=== PATIENT | female | born 1995 | race African-American/Black ===

== ENCOUNTER 2018-04-27 21:22 | Emergency (ER) | payer OTHER ==
[2018-04-27] MEDS ORDERED: CLINDAMYCIN HCL 150 MG CAP ONE (22:26)
[2018-04-27] MEDS ORDERED: DEXAMETHASONE 10 MG/ML VIAL ONE (22:26)
--- NOTE | 2018-04-27 22:28 | ER ---
Nurse's Notes [facility] Name: Emeterio Dunn Age: 23 yrs Sex: Female : 1995 Arrival Date: 04/27/2018 Time: 21:22 Bed 16 Private MD: Diagnosis: Acute tonsillitis Presentation: 04/27 21:55 Presenting complaint: Patient states: that she is having pain with swallowing and fc cough. Started 2 weeks ago. Denies any ear pain or fever. She is concerned that she may have strep throat. Transition of care: patient was not received from another setting of care. Onset of symptoms was April 13, 2018. Risk Assessment: Do you want to hurt yourself or someone else? Patient reports no desire to harm self or others. Initial Sepsis Screen: Does the patient meet any 2 criteria? No. Patient's initial sepsis screen is negative. Does the patient have a suspected source of infection? No. Patient's initial sepsis screen is negative. Care prior to arrival: None. 21:55 Method Of Arrival: Ambulatory 21:55 Acuity: JOSE 4 Triage Assessment: 21:57 General: Appears comfortable, Behavior is calm, cooperative, appropriate for age. Pain: fc Complains of pain in neck Pain currently is 10 out of 10 on a pain scale. Quality of pain is described as burning, aching, Pain began 2 weeks ago Is continuous. EENT: EENT: Throat is reddened has enlarged tonsils bilaterally with gag reflex present, Reports pain when swallowing. Neuro: Level of Consciousness is awake, alert, obeys commands, Oriented to person, place, time, situation. Cardiovascular: No deficits noted. Respiratory: Reports cough that is Airway is patent Trachea midline Respiratory effort is even, unlabored, Respiratory pattern is regular, symmetrical, Onset: The symptoms/episode began/occurred gradually. GI: No deficits noted. : No deficits noted. Derm: Skin is pink, warm \T\ dry. Musculoskeletal: Circulation, motion, and sensation intact. Capillary refill < 3 seconds, Range of motion: intact in all extremities. 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 - Social history:: Smoking status: Patient/guardian denies using tobacco. - Ebola Screening: : Patient negative for fever greater than or equal to 101.5 degrees Fahrenheit, and additional compatible Ebola Virus Disease symptoms Patient denies exposure to infectious person Patient denies travel to an Ebola-affected area in the 21 days before illness onset. Screenin:15 Abuse screen: Denies threats or abuse. Denies injuries from another. Nutritional bp screening: No deficits noted. Tuberculosis screening: No symptoms or risk factors identified. Fall Risk None identified. Assessment: 22:14 General: RECD 23YO BF VIA POV WITH C/O 2 WK SORE THROAT. Respiratory: Airway is patent bp Respiratory effort is even, unlabored, Respiratory pattern is regular, symmetrical, Breath sounds are clear bilaterally. 22:38 Reassessment: PT D/C HOME AMBULATORY WITH FAMILY, DX WITH TONSILITIS. bp Vital Signs: 22:00 BP 111 / 84; Pulse 57; Resp 20; Temp 97.8; Pulse Ox 100% ; Weight 67.13 kg (R); Height fc 4 ft. 11 in. (149.86 cm) (R); Pain 10/10; 22:00 Body Mass Index 29.89 (67.13 kg, 149.86 cm) fc ED Course: 21:22 Patient arrived in ED. ds1 21:56 Triage completed. fc 21:57 Arm band placed on Patient placed in waiting room, Patient notified of wait time. fc 22:14 Deven Mackay, RN is Primary Nurse. bp 22:15 Patient has correct armband on for positive identification. Bed in low position. Call bp light in reach. Side rails up X2. Adult w/ patient. 22:18 Ari Mckeon PA is PHCP. [facility] 22:18 Franck Zaidi MD is Attending Physician. jm 22:27 Angela Fleming MD is Referral Physician. [facility] 22:38 No provider procedures requiring assistance completed. Patient did not have IV access bp during this emergency room visit. Administered Medications: 22:30 Drug: Decadron 10 mg Route: IM; Site: right deltoid; bp 22:31 Follow up: Response: No adverse reaction bp 22:31 Drug: Clindamycin 300 mg Route: PO; bp 22:31 Follow up: Response: No adverse reaction bp Outcome: 22:27 Discharge ordered by . susan 22:39 Discharged to home ambulatory, with family. bp 22:39 Condition: stable 22:39 Discharge instructions given to patient, Instructed on discharge instructions, follow up and referral plans. medication usage, Demonstrated understanding of instructions, follow-up care, medications, Prescriptions given X 1. 22:41 Patient left the ED. bp Signatures: Ari Mckeon PA PA jmm Chretien, Felicia, RN RN Marilyn Solano ds1 Deven Mackay RN RN bp
--- NOTE | 2018-04-27 22:28 | EDPHYS ---
Physician Documentation [facility] Name: Emeterio Dunn Age: 23 yrs Sex: Female : 1995 Arrival Date: 04/27/2018 Time: 21:22 Bed 16 Private MD: ED Physician Franck Zaidi HPI: 04/27 22:19 This 23 yrs old Black Female presents to ER via Ambulatory with complaints of Sore jmm Throat. 22:19 The patient presents with sore throat. The patient describes throat pain as constant. jmm Onset: The symptoms/episode began/occurred gradually, 2 week(s) ago. Associated signs and symptoms: Pertinent positives: Sore throat Pertinent negatives vomiting. Patient complains of 2 weeks of sore throat. 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 Denies fever. Pain on eating. patient states she is able to handle secretions and drink liquids without difficulty.. 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 - Social history:: Smoking status: Patient/guardian denies using tobacco. - Ebola Screening: : Patient negative for fever greater than or equal to 101.5 degrees Fahrenheit, and additional compatible Ebola Virus Disease symptoms Patient denies exposure to infectious person Patient denies travel to an Ebola-affected area in the 21 days before illness onset. ROS: 22:19 Constitutional: Negative for fever, chills, and weight loss. jmm 22:19 Abdomen/GI: Negative for abdominal pain, nausea, vomiting, diarrhea, and constipation, MS/Extremity: Negative for injury and deformity. 22:19 ENT: Positive for sore throat. 22:19 Respiratory: Negative for shortness of breath. 22:19 Skin: Negative for rash. 22:19 Neuro: Negative for weakness. 22:19 All other systems are negative. Exam: 22:19 Head/Face: atraumatic. jmm 22:19 Constitutional: The patient appears in no acute distress, alert, awake. 22:19 ENT: pharyngeal erythema noted, no uvular shift, left tonsillar swelling appreciated. no peritonsillar swelling appreciated. 22:19 Cardiovascular: Rate: normal. 22:19 Respiratory: the patient does not display signs of respiratory distress, Respirations: normal. 22:19 Musculoskeletal/extremity: ROM: intact in all extremities. 22:19 Skin: Appearance: Color: normal in color. 22:19 Neuro: Orientation: is normal, Mentation: is normal, Memory: is normal. 22:19 Psych: Behavior/mood is pleasant, cooperative. Vital Signs: 22:00 BP 111 / 84; Pulse 57; Resp 20; Temp 97.8; Pulse Ox 100% ; Weight 67.13 kg (R); Height fc 4 ft. 11 in. (149.86 cm) (R); Pain 10/10; 22:00 Body Mass Index 29.89 (67.13 kg, 149.86 cm) fc MDM: 22:18 Patient medically screened. [facility] 22:19 Data reviewed: vital signs, nurses notes. Counseling: I had a detailed discussion with susan the patient and/or guardian regarding: the historical points, exam findings, and any diagnostic results supporting the discharge/admit diagnosis, the need for outpatient follow up, to return to the emergency department if symptoms worsen or persist or if there are any questions or concerns that arise at home. 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 patient also given strict return precautions. patient understood and agrees with the plan of care. 04/27 22:01 Order name: Strep; Complete Time: 22:53 fc Administered Medications: 22:30 Drug: Decadron 10 mg Route: IM; Site: right deltoid; bp 22:31 Follow up: Response: No adverse reaction bp 22:31 Drug: Clindamycin 300 mg Route: PO; bp 22:31 Follow up: Response: No adverse reaction bp Disposition: 04/28 11:11 Co-signature as Attending Physician, Franck Zaidi MD I agree with the assessment and wa plan of care. Disposition: 04/27/18 22:27 Discharged to Home. Impression: Acute tonsillitis. - Condition is Stable. - Discharge Instructions: Tonsillitis. - Prescriptions for Clindamycin HCl 300 mg Oral Capsule - take 1 capsule by ORAL route every 6 hours for 10 days; 40 capsule. - Medication Reconciliation Form, Thank You Letter, Antibiotic Education, Prescription Opioid Use form. - Follow up: Angela Fleming; When: 2 - 3 days; Reason: Continuance of care. Signatures: Dispatcher [employer] EDAri Womack PA PA jmm Chretien, Felicia, RN RN Franck Zaidi MD MD wa Peltier, Brian, RN RN bp Corrections: (The following items were deleted from the chart) 04/27 22:41 22:27 04/27/2018 22:27 Discharged to Home. Impression: Acute tonsillitis. Condition is bp Stable. Discharge Instructions: Tonsillitis. Prescriptions for Clindamycin HCl 300 mg Oral Capsule - take 1 capsule by ORAL route every 6 hours for 10 days; 40 capsule. and Forms are Medication Reconciliation Form, Thank You Letter, Antibiotic Education, Prescription Opioid Use. Follow up: Angela Fleming; When: 2 - 3 days; Reason: Continuance of care. susan
== END 2018-04-27 22:41 | disposition home or self-care (01) ==
LOC: ER 21:22
DX: J03.90 Acute tonsillitis, unspecified (principal)
CPT/HCPCS: 87081; 96372; 99283; J1100

== ENCOUNTER 2019-07-22 21:31 | Emergency (ER) | payer OTHER ==
[2019-07-22] MEDS ORDERED: KETOROLAC 30 MG/ML INJ ONE (22:38)
[2019-07-22 22:41] LABS: Absolute Lymphocytes (CBC) 2.9 K/uL (0.7-4.9); Basophils % 0.5 % (0-1.3); Hematocrit 38.6 % (36.0-45.0); Lymphocytes % 25.9 % (15.3-44.8); MPV 8.6 fL (7.6-11.3); RBC Red Blood Cell Count 4.53 M/uL (3.86-4.86)
[2019-07-22 22:58] LABS: ALT/SGPT 16 U/L (12-78); AST/SGOT 10 U/L (15-37); Albumin 3.8 g/dL (3.4-5.0); Alkaline Phosphatase 88 U/L (45-117); BUN Blood Urea Nitrogen 15 mg/dL (7-18); Bicarbonate 27 mmol/L (21-32); Bilirubin Direct < 0.1 mg/dL (0-0.2); Bilirubin Total 0.2 mg/dL (0.2-1.0); Glucose Level 94 mg/dL (74-106); Lipase 155 U/L (73-393); Potassium 3.8 mmol/L (3.5-5.1); Sodium Level 137 mmol/L (136-145)
--- NOTE | 2019-07-22 23:04 | EDPHYS ---
Physician Documentation [facility] Name: Emeterio Dunn Age: 24 yrs Sex: Female : 1995 Arrival Date: 07/22/2019 Time: 21:35 Bed 15 Private MD: ED Physician Sarabjit Emerson HPI: 07/22 22:33 This 24 yrs old Black Female presents to ER via Ambulatory with complaints of Abdominal jr8 Pain. 22:33 The patient presents with abdominal pain in the right upper quadrant. Onset: The jr8 symptoms/episode began/occurred acutely, today. The symptoms do not radiate. Associated signs and symptoms: none. The symptoms are described as sharp. Modifying factors: The symptoms are alleviated by nothing, the symptoms are aggravated by movement. Severity of pain: At its worst the pain was moderate in the emergency department the pain is unchanged. The patient has not experienced similar symptoms in the past. The patient has not recently seen a physician. Stated that she had sudden onset right lower rib pain under right breast and abdominal pain that will not go away. Worse with movement of arm. Denies fevers, n/v/d. 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 - Social history:: Smoking status: Patient/guardian denies using tobacco. - Ebola Screening: : Patient negative for fever greater than or equal to 101.5 degrees Fahrenheit, and additional compatible Ebola Virus Disease symptoms Patient denies exposure to infectious person Patient denies travel to an Ebola-affected area in the 21 days before illness onset No symptoms or risks identified at this time. ROS: 22:34 Eyes: Negative for injury, pain, redness, and discharge, ENT: Negative for injury, jr8 pain, and discharge, Neck: Negative for injury, pain, and swelling, Respiratory: Negative for shortness of breath, cough, wheezing, and pleuritic chest pain, Back: Negative for injury and pain, MS/Extremity: Negative for injury and deformity, Skin: Negative for injury, rash, and discoloration, Neuro: Negative for headache, weakness, numbness, tingling, and seizure. 22:34 Cardiovascular: Positive for chest pain, Negative for edema, orthopnea, palpitations, paroxysmal nocturnal dyspnea. 22:34 Abdomen/GI: Positive for abdominal pain, Negative for nausea, vomiting, and diarrhea, constipation, abdominal cramps, abdominal distension. Exam: 22:34 Eyes: Pupils equal round and reactive to light, extra-ocular motions intact. Lids and jr8 lashes normal. Conjunctiva and sclera are non-icteric and not injected. Cornea within normal limits. Periorbital areas with no swelling, redness, or edema. ENT: Nares patent. No nasal discharge, no septal abnormalities noted. Tympanic membranes are normal and external auditory canals are clear. Oropharynx with no redness, swelling, or masses, exudates, or evidence of obstruction, uvula midline. Mucous membranes moist. Neck: Trachea midline, no thyromegaly or masses palpated, and no cervical lymphadenopathy. Supple, full range of motion without nuchal rigidity, or vertebral point tenderness. No Meningismus. Cardiovascular: Regular rate and rhythm with a normal S1 and S2. No gallops, murmurs, or rubs. Normal PMI, no JVD. No pulse deficits. Respiratory: Lungs have equal breath sounds bilaterally, clear to auscultation and percussion. No rales, rhonchi or wheezes noted. No increased work of breathing, no retractions or nasal flaring. Back: No spinal tenderness. No costovertebral tenderness. Full range of motion. Skin: Warm, dry with normal turgor. Normal color with no rashes, no lesions, and no evidence of cellulitis. MS/ Extremity: Pulses equal, no cyanosis. Neurovascular intact. Full, normal range of motion. Neuro: Awake and alert, GCS 15, oriented to person, place, time, and situation. Cranial nerves II-XII grossly intact. Motor strength 5/5 in all extremities. Sensory grossly intact. Cerebellar exam normal. Normal gait. 22:34 Chest/axilla: Inspection: normal, Palpation: tenderness, that is mild, of the right lateral anterior chest under breast. 22:34 Abdomen/GI: Inspection: abdomen appears normal, Bowel sounds: active, all quadrants, Palpation: soft, in all quadrants, mild abdominal tenderness, in the right upper quadrant, mass, is not appreciated, rebound tenderness, is not appreciated, voluntary guarding, is not appreciated, involuntary guarding, is not appreciated, no appreciated organomegaly, Indicators: McBurney's point is not tender, Cook's sign is negative, Rovsing's sign is negative, Liver: tenderness, is not appreciated. Vital Signs: 21:40 BP 131 / 92; Pulse 92; Resp 18 S; Temp 97.8(TE); Pulse Ox 100% on R/A; Weight 68.95 kg ca1 (R); Height 4 ft. 11 in. (149.86 cm) (R); Pain 10/10; 22:26 BP 99 / 65; Pulse 90; Resp 17; Pulse Ox 98% on R/A; rr5 23:23 BP 115 / 70; Pulse 75; Resp 17; Temp 98.; Pulse Ox 99% ; Pain 2/10; rr5 21:40 Body Mass Index 30.70 (68.95 kg, 149.86 cm) ca1 MDM: 21:51 Patient medically screened. [facility] 23:02 Data reviewed: vital signs, nurses notes, lab test result(s), radiologic studies, jr8 ultrasound. Data interpreted: Pulse oximetry: on room air is 98 %. Interpretation: normal. Counseling: I had a detailed discussion with the patient and/or guardian regarding: the historical points, exam findings, and any diagnostic results supporting the discharge/admit diagnosis, lab results, radiology results, the need for outpatient follow up, a family practitioner, to return to the emergency department if symptoms worsen or persist or if there are any questions or concerns that arise at home. 07/22 22:10 Order name: Basic Metabolic Panel; Complete Time: 23:07/22 22:10 Order name: CBC with Diff; Complete Time: 23:07/22 22:10 Order name: Creatinine for Radiology; Complete Time: 23:07/22 22:10 Order name: Hepatic Function; Complete Time: 23:07/22 22:10 Order name: Lipase; Complete Time: 23:07/22 22:10 Order name: US Abdomen Limited 07/22 22:10 Order name: IV Saline Lock; Complete Time: :27 07/22 22:10 Order name: Labs collected and sent; Complete Time: :27 8 Administered Medications: 22:40 Drug: TORadol - Ketorolac 15 mg Route: IVP; Site: right antecubital; rr5 23:24 Follow up: Response: No adverse reaction; Pain is decreased rr5 Disposition: 07/23 00:32 Co-signature as Attending Physician, Sarabjit Emerson MD. rn Disposition: 07/22/19 23:03 Discharged to Home. Impression: Muscle spasm. - Condition is Stable. - Discharge Instructions: Muscle Cramps and Spasms. - Prescriptions for Ibuprofen 800 mg Oral Tablet - take 1 tablet by ORAL route every 12 hours As needed take with food; 20 tablet. Zanaflex 4 mg Oral Tablet - take 1 tablet by ORAL route every 8 hours As needed; 20 tablet. - Medication Reconciliation Form, Thank You Letter, Antibiotic Education, Prescription Opioid Use, Work release form form. - Follow up: Private Physician; When: 5 - 6 days; Reason: Recheck today's complaints, Continuance of care, Re-evaluation by your physician. - Problem is new. - Symptoms have improved. Signatures: Dispatcher [employer] EDAL Sarabjit Emerson MD MD rn Roszak, Josh, PA PA jr8 Johnny Bauer RN RN rr5 Amy Morgan RN RN ca1 Corrections: (The following items were deleted from the chart) 07/22 23:24 23:03 07/22/2019 23:03 Discharged to Home. Impression: Muscle spasm. Condition is rr5 Stable. Forms are Medication Reconciliation Form, Thank You Letter, Antibiotic Education, Prescription Opioid Use. Follow up: Private Physician; When: 5 - 6 days; Reason: Recheck today's complaints, Continuance of care, Re-evaluation by your physician. Problem is new. Symptoms have improved. jr8
--- NOTE | 2019-07-22 23:04 | ER ---
Nurse's Notes [facility] Name: Emeterio Dunn Age: 24 yrs Sex: Female : 1995 Arrival Date: 07/22/2019 Time: 21:35 Bed 15 Private MD: Diagnosis: Muscle spasm Presentation: 07/22 21:38 Presenting complaint: Patient states: "I am having pain on the R rib area under the ca1 breast since Monday. I cannot lift anything on the R side and I can't even get up from bed on that side". Transition of care: patient was not received from another setting of care. Onset of symptoms was July 20, 2019. Risk Assessment: Do you want to hurt yourself or someone else? Patient reports no desire to harm self or others. Initial Sepsis Screen: Does the patient meet any 2 criteria? No. Patient's initial sepsis screen is negative. Does the patient have a suspected source of infection? No. Patient's initial sepsis screen is negative. Care prior to arrival: None. 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 - Social history:: Smoking status: Patient/guardian denies using tobacco. - Ebola Screening: : Patient negative for fever greater than or equal to 101.5 degrees Fahrenheit, and additional compatible Ebola Virus Disease symptoms Patient denies exposure to infectious person Patient denies travel to an Ebola-affected area in the 21 days before illness onset No symptoms or risks identified at this time. Screenin:00 Fall Risk IV access (20 points). Total Joy Fall Scale indicates No Risk (0-24 pts). rr5 21:43 Abuse screen: Denies threats or abuse. Denies injuries from another. Nutritional rr5 screening: No deficits noted. Tuberculosis screening: No symptoms or risk factors identified. Assessment: 21:45 General: Appears in no apparent distress. comfortable, Behavior is calm, cooperative, rr5 appropriate for age. Pain: Complains of pain in right lateral anterior chest Pain does not radiate. Pain currently is 10 out of 10 on a pain scale. Quality of pain is described as aching, Pain began 2-3 days ago. Is intermittent. Neuro: Level of Consciousness is awake, alert, obeys commands, Oriented to person, place, time. Cardiovascular: Reports right side of the chest Capillary refill < 3 seconds Patient's skin is warm and dry. Respiratory: Airway is patent Respiratory effort is even, unlabored, Respiratory pattern is regular, symmetrical. GI: Abdomen is round Bowel sounds present X 4 quads. Abd is soft and non tender. : No signs and/or symptoms were reported regarding the genitourinary system. EENT: No signs and/or symptoms were reported regarding the EENT system. Derm: Skin Skin temperature is warm. Musculoskeletal: Circulation, motion, and sensation intact. Capillary refill < 3 seconds, Reports pain in right lateral anterior chest Denies trauma. Vital Signs: 21:40 BP 131 / 92; Pulse 92; Resp 18 S; Temp 97.8(TE); Pulse Ox 100% on R/A; Weight 68.95 kg ca1 (R); Height 4 ft. 11 in. (149.86 cm) (R); Pain 10/10; 22:26 BP 99 / 65; Pulse 90; Resp 17; Pulse Ox 98% on R/A; rr5 23:23 BP 115 / 70; Pulse 75; Resp 17; Temp 98.; Pulse Ox 99% ; Pain 2/10; rr5 21:40 Body Mass Index 30.70 (68.95 kg, 149.86 cm) ca1 ED Course: 21:35 Patient arrived in ED. ds1 21:39 Triage completed. ca1 21:40 Arm band placed on left wrist. ca1 21:42 Johnny Bauer, RN is Primary Nurse. rr5 21:43 Patient has correct armband on for positive identification. Bed in low position. Call rr5 light in reach. Side rails up X2. Pulse ox on. NIBP on. 21:48 No provider procedures requiring assistance completed. rr5 21:51 Santos Rothman PA is PHCP. jr8 21:51 Sarabjit Emerson MD is Attending Physician. jr8 22:20 Inserted saline lock: 20 gauge in right antecubital area, using aseptic technique. rr5 Blood collected. 22:33 US Abdomen Limited In Process Unspecified. EDMS 23:24 IV discontinued, intact, bleeding controlled, No redness/swelling at site. Pressure rr5 dressing applied. Administered Medications: 22:40 Drug: TORadol - Ketorolac 15 mg Route: IVP; Site: right antecubital; rr5 23:24 Follow up: Response: No adverse reaction; Pain is decreased rr5 Outcome: 23:03 Discharge ordered by . ayde 23:24 Discharged to home ambulatory, with family. rr5 23:24 Condition: stable 23:24 Discharge instructions given to patient, family, Instructed on discharge instructions, follow up and referral plans. medication usage, Demonstrated understanding of instructions, follow-up care, medications, Prescriptions given X 2. 23:24 Patient left the ED. rr5 Signatures: Dispatcher [employer] EDMT SolanoMarilyn gomez ds1 Santos Rothman PA PA jr8 Johnny Bauer, RN RN rr5 Amy Morgan RN RN ca1
[2019-07-23 01:26] VITALS: BP 115/70; TEMP 98; O2SAT 99
--- NOTE | 2019-07-23 07:40 | RAD REPORT ---
EXAM DESCRIPTION: US - Abdomen Exam Limited - 07/22/2019 10:32 pm CLINICAL HISTORY: r/o GB;Abd pain COMPARISON: No comparisons FINDINGS: No gallstones, sludge or other abnormalities within the gallbladder lumen. There is no wal l thickening or pericholecystic fluid. No common duct stone or biliary tree dilatation identified. IMPRESSION: Normal gallbladder and biliary tree ultrasound.
== END 2019-07-22 23:24 | disposition home or self-care (01) ==
LOC: ER 21:31
DX: M62.838 Other muscle spasm (principal)
CPT/HCPCS: 36415; 76705; 80048; 80076; 83690; 85025; 96374; 99284